=== PATIENT | male | born 1980 ===

== ENCOUNTER 2019-10-11 12:53 | Emergency (ER) | payer OTHER, SELFPAY ==
[~2019-10-11] VITALS: Ht 175.3 cm; Wt 77.3 kg
[2019-10-11 12:55] VITALS: BP 126/89
== END 2019-10-11 13:12 | disposition home or self-care (01) ==
LOC: ER 12:54
DX: J06.9 Acute upper respiratory infection, unspecified (principal); Z20.828 Contact with and (suspected) exposure to other viral communicable diseases; F41.9 Anxiety disorder, unspecified; Z88.1 Allergy status to other antibiotic agents
CPT/HCPCS: 36415; 87635; 99283